=== PATIENT | female | born 1955 | race Caucasian/White ===

== ENCOUNTER 2017-04-27 14:22 | Outpatient (CLI) | payer OTHER | END 2017-04-27 14:23 | disposition home or self-care (01) | LOC: BICRAD 14:22 | PROVIDERS: ATTEND Nurse Practitioner Family | DX: R05 Cough (principal) | CPT/HCPCS: 71020 ==

== ENCOUNTER 2019-02-26 13:27 | Outpatient (CLI) | payer OTHER ==
--- NOTE | 2019-03-07 12:55 | MMO ---
Bilateral MAMMO Bilat Screen [facility]. CLINICAL HISTORY: Patient is 64 years old and is seen for screening. The patient has no family history of breast cancer. The patient has no personal history of cancer. VIEWS: The views performed were: bilateral craniocaudal with tomosynthesis; bilateral mediolateral oblique with tomosynthesis; and right exaggerated craniocaudal. FILMS COMPARED: The present examination has been compared to prior imaging studies performed at [facility] on 11/05/2015, 11/09/2015 and 11/29/2016, and at [facility] on 08/29/2017. This study has been interpreted with the assistance of computer-aided detection. MAMMOGRAM FINDINGS: The breasts are heterogeneously dense, which could obscure a lesion on mammography. There are benign appearing calcifications seen in the left breast. There are no suspicious masses, calcifications or areas of architectural distortion. There are no suspicious masses, suspicious calcifications, or new areas of architectural distortion. IMPRESSION: THERE IS NO MAMMOGRAPHIC EVIDENCE OF MALIGNANCY. A ROUTINE FOLLOW-UP MAMMOGRAM IN 1 YEAR IS RECOMMENDED. THE RESULTS OF THIS EXAM WERE SENT TO THE PATIENT. ACR BI-RADS Category 2 - Benign finding MAMMOGRAPHY NOTE: 1. A negative mammogram report should not delay a biopsy if a dominant of clinically suspicious mass is present. 2. Approximately 10% to 15% of breast cancers are not detected by mammography. 3. Adenosis and dense breasts may obscure an underlying neoplasm. Reported by: COCO TERRY MD Electonically Signed: [id number]
== END 2019-02-26 13:28 | disposition home or self-care (01) ==
LOC: BICMAMMO 13:27
PROVIDERS: ATTEND Specialist
DX: Z12.31 Encounter for screening mammogram for malignant neoplasm of breast (principal)
CPT/HCPCS: 77063; 77067

== ENCOUNTER 2019-04-30 07:45 | Outpatient (CLI) | payer MEDICARE ==
--- NOTE | 2019-04-30 14:05 | MRI ---
MRI LUMBAR SPINE WITHOUT CONTRAST: HISTORY: The patient states she is having chronic back pain. History of falls. FINDINGS: The lumbar vertebral bodies are normal in height. There are some mild compression changes of the supe rior endplate of T12. There is some minimal bony retropulsion of the posterior-superior margin of denise t vertebral body by 4 to 5 mm. These changes appear chronic in nature. Disk spaces are all well prese rved. There is no significant periaortic or mesenteric adenopathy. The visualized portions of the kidneys appear unremarkable. T12-L1: Unremarkable. L1-L2: Unremarkable. L2-L3: Unremarkable. L3-L4: Some mild facet hypertrophic changes. No canal or foraminal stenosis. L4-L5: Degenerative facet changes at this level without canal or foraminal narrowing. L5-S1: No significant canal or foraminal stenosis. Mild degenerative facet changes. IMPRESSION: Minimal compression changes involving the superior endplate of T12 with 4 to 5 mm of bony retropulsio n without any significant canal stenosis. Compression is approximately 20%. POS: [facility]
--- NOTE | 2019-04-30 14:13 | MRI ---
MRI THORAACIC SPINE PERFORMED WITHOUT CONTRAST ENHANCEMENT: Date: 04/30/19 HISTORY: Back pain. FINDINGS: There is severe scoliotic change to the spine, convex to the right. Vertebral bodies all maintain nor mal height, with the exception of an old appearing compression injury involving the superior end plat e of T12. There is approximately 4-5 mm of bony retropulsion associated with this without significant canal narrowing. Degree of compression is in the 20% range. No abnormal marrow signal change is note d. There is no significant canal or foraminal stenosis appreciated. IMPRESSION: Old-appearing compression injury of T12 with 4-5 mm of bony retropulsion of the posterior superior ma rgin at T12 without canal stenosis. POS: [facility]
--- NOTE | 2019-04-30 14:26 | MRI ---
MRI CERVICAL SPINE PERFORMED WITHOUT CONTRAST ENHANCEMENT: Date: 04/30/19 HISTORY: Chronic neck pain. FINDINGS: There is a straightening to slight reversal to the normal cervical curve. There is degenerative disc narrowing at C5-6 and C6-7. Cord signal change is normal. C2-3: Unremarkable. C3-4: Unremarkable. C4-5: Unremarkable. C5-6: There is some posterior osteophytic change at this level without significant canal or foramina l stenosis. C6-7: Again, minimal posterior osteophytic change without significant canal narrowing. There is some borderline right foraminal narrowing. There is a tiny central fluid density which is compatible with a tiny syrinx at this level. It terminates at the C7-T1 level. C7-T1: Unremarkable. 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 No signs of any significant canal or foraminal mercedes nosis at any of the vertebral body levels. POS: [facility]
== END 2019-04-30 07:46 | disposition home or self-care (01) ==
LOC: SCSMRI 07:45
PROVIDERS: ATTEND Neurological Surgery
DX: M54.2 Cervicalgia (principal); M54.6 Pain in thoracic spine; M54.5 Low back pain; G95.0 Syringomyelia and syringobulbia
CPT/HCPCS: 72141; 72146; 72148

== ENCOUNTER 2019-07-01 07:14 | Day surgery (SDC) | payer MEDICARE ==
[2019-06-28 14:41] VITALS: BMI 28.2
[2019-07-01 09:00] LABS: Anion Gap 11 mmol/L (10-20); BUN (Urea Nitrogen) 14 mg/dL (9.8-20.1); Calc. Creatinine Clearance 83 mL/min (70-130); Calcium 8.8 mg/dL (7.8-10.44); Carbon Dioxide 26 mmol/L (23-31); Chloride 105 mmol/L (98-107); Estimated GFR-MDRD 68; Glucose 98 mg/dL (80-115); Sodium 138 mmol/L (136-145)
[2019-07-01] MEDS ORDERED: PROPOFOL 200 MG/20 ML VIAL ONE (10:03)
[2019-07-01] MEDS ORDERED: Rocuronium Bromide 10 MG/ML (10ML VIAL) ONE (10:03)
[2019-07-01] MEDS ORDERED: EPHEDRINE 25 MG/5 ML SYRINGE ONE (10:03)
[2019-07-01] MEDS ORDERED: Ondansetron PF 4 MG/2 ML Vial ONE (10:03)
[2019-07-01] MEDS ORDERED: Glycopyrrolate 0.2 MG/ML 5 ML SYRINGE ONE (10:03)
[2019-07-01] MEDS ORDERED: diphenhydrAMINE 50 MG/ML VIAL ONE (10:03)
[2019-07-01] MEDS ORDERED: Dexamethasone 20 MG/5 ML VIAL ONE (10:03)
[2019-07-01 10:25] LABS: Hemoglobin 12.5 g/dL (12.0-16.0); Mean Corpuscular HGB CONC 33.8 g/dL (32.0-36.0); Mean Corpuscular Hemoglobin 31.3 pg (27.0-31.0); Mean Corpuscular Volume 92.7 fL (78.0-98.0); Mean Platelet Volume 6.9 fL (7.4-10.4); Platelet Count 246 thou/uL (130-400); RBC Distribution Width 11.9 % (11.5-14.5); Red Blood Cell (RBC) Count 3.99 mill/uL (4.20-5.40); White Blood Cell (WBC) Count 5.6 thou/uL (4.8-10.8)
[2019-07-01] MEDS ORDERED: Scopolamine 1.5 mg/72 hour Patch ONE (10:39)
[2019-07-01] MEDS ORDERED: Fentanyl 100 MCG/2 ML VIAL ONE ×2 (10:40→12:39)
[2019-07-01] MEDS ORDERED: Midazolam HCl 2 mg/2 ml Vial ONE (10:40)
[2019-07-01] MEDS ORDERED: hydrALAZINE 20 MG/ML VIAL ONE (12:31)
[2019-07-01] MEDS ORDERED: HYDROcodone/Acetaminophen 5/325 mg Tablet ONE (14:36)
--- NOTE | 2019-07-01 16:12 | OP ---
DATE OF PROCEDURE: 07/01/2019 ACCOUNT EXECUTIVE METALWORKING: Joanie Delarosa PA-C PROCEDURES PERFORMED: Anterior cervical diskectomy C5-C6 and C6-C7, interbody arthrodesis, intervertebral biomechanical device, local morselized autograft, demineralized bone matrix, and anterior titanium instrumentation C5 through C7. DESCRIPTION OF PROCEDURE: The patient was brought to the operating room and intubated. She was positioned supine with head in modest extension on a gel-filled donut. An incision was made in the right precervical area and dissected medial to the sternocleidomastoid muscle, identified the anterior cervical spine and the level was confirmed by x-ray. We debrided the anterior osteophytes, placed distraction across the disk spaces, and completely removed the intervertebral disks. The bony endplates were then decorticated for the purpose of arthrodesis and appropriate-sized intervertebral biomechanical PEEK device was brought into the field, filled with demineralized bone matrix and local morselized autograft, and tapped in place securely at C5-C6 and C6-C7. Next, an anterior plate was brought into the field and secured to C5, C6, and C7 using two 14 mm screws at each level. The wound was extensively irrigated. MAC hemostasis was secured. The wound was closed in anatomic layers. Job ID: [id number]
--- NOTE | 2019-07-01 16:43 | EKG ---
Test Reason : PREOP Blood Pressure : / mmHG Vent. Rate : 064 BPM Atrial Rate : 064 BPM P-R Int : 174 ms QRS Dur : 086 ms QT Int : 410 ms P-R-T Axes : 051 002 037 degrees QTc Int : 422 ms Sinus rhythm with occasional Premature ventricular complexes T wave abnormality, consider anterior ischemia Abnormal ECG Confirmed by CARLOS ZELAYA ([id number]) on 07/01/2019 4:43:29 PM Referred By: TERRI Confirmed By:CARLOS ZELAYA
== END 2019-07-01 15:00 | disposition home or self-care (01) ==
LOC: SDC 07:14
PROVIDERS: ATTEND Neurological Surgery
PROC: 0RG20A0 Fusion of 2 or more Cervical Vertebral Joints with Interbody Fusion Device, Anterior Approach, Anterior Column, Open Approach (ICD-10-PCS; principal; 2019-07-01)
PROC: 0RT30ZZ Resection of Cervical Vertebral Disc, Open Approach (ICD-10-PCS; 2019-07-01)
DX: M50.122 Cervical disc disorder at C5-C6 level with radiculopathy (principal); M47.22 Other spondylosis with radiculopathy, cervical region; M25.78 Osteophyte, vertebrae; I10 Essential (primary) hypertension; E03.9 Hypothyroidism, unspecified; Z79.2 Long term (current) use of antibiotics; Z79.899 Other long term (current) drug therapy; Z88.8 Allergy status to other drugs, medicaments and biological substances
CPT/HCPCS: 36415; 76000; 80048; 85027; 93005; 93010; C1713; C1776; J0360; J0690; J1100; J1200; J2250; J2405; J2704; J3010; J3490

== ENCOUNTER 2019-07-16 08:35 | Outpatient (CLI) | payer MEDICARE ==
--- NOTE | 2019-07-16 09:33 | RAD ---
3 VIEWS CERVICAL SPINE: Date: 07/16/2019 COMPARISON: None. HISTORY: Radiculopathy, prior cervical spine surgery. FINDINGS: The open-mouth odontoid view demonstrates a normal appearing dens and C1-2 articulation. There is ant erior diskectomy and fusion hardware at the C5-6 and C6-7 level, with no evidence for hardware failur e. There is mild soft tissue swelling involving the prevertebral soft tissues anterior to the postope rative hardware suggesting that this surgery is relatively recent. Clinical correlation is required. There is left-sided facet and uncovertebral osteophyte formation within the upper cervical spine, mos t prominent at C2-3, C3-4, and C4-5. Incompletely imaged dextroscoliosis is noted within the thoracic spine. IMPRESSION: Postoperative and degenerative change within the cervical spine as detailed above. POS: [facility]
== END 2019-07-16 08:36 | disposition home or self-care (01) ==
LOC: TBSIIMAG 08:35
PROVIDERS: ATTEND Neurological Surgery
DX: M47.22 Other spondylosis with radiculopathy, cervical region (principal); Z98.1 Arthrodesis status
CPT/HCPCS: 72040

== ENCOUNTER 2019-10-18 13:31 | Outpatient (CLI) | payer MEDICARE ==
--- NOTE | 2019-10-18 14:12 | MRI ---
MRI Cervical spine without contrast: HISTORY: Cervical radiculopathy. Limited range of motion of neck. Difficulty moving arms. History of prior nec k surgery. COMPARISON: 04/30/2019 FINDINGS: There has been interval postoperative changes with metallic susceptibility artifact seen at the C5-6 and C6-7 levels related to anterior plate and screws transfixing these levels. Tiny syringohydromyelia is again seen at the C6-7 level and unchanged. Metallic susceptibility artifact is seen in the posterior soft tissues at the level of the lower cerv ical spine which was also seen on the prior study and likely related to prior postoperative change. C1-2:Degenerative changes seen at the articulation of the odontoid with anterior arch of C1 which matthews s result in mild effacement of the ventral subarachnoid space at this level. This is unchanged from prior exam. C2-3: There is no disc bulge or disc herniation. The central spinal canal and neural foramina are pat ent. C3-4: There is no disc bulge or disc herniation. The central spinal canal and neural foramina are pat ent. Trace anterolisthesis of C3 on C4 is present and likely attributable to facet degenerative changes at this level. C4-5: Mild disc osteophyte complex without significant central canal narrowing. The neural foramina a re patent. C5-6: Central spinal canal and neural foramina are patent. C6-7: Central spinal canal and neural foramina are patent. C7-T1: Central spinal canal and neural foramina are patent. IMPRESSION: 1. Stable tiny syringohydromyelia at the C6-7 level. 2. Interval postoperative changes related to anterior cervical fusion from C5 to C7. 3. No significant central canal or neural foraminal narrowing at any level.
== END 2019-10-18 13:32 | disposition home or self-care (01) ==
LOC: TBSIIMAG 13:31
PROVIDERS: ATTEND Neurological Surgery
DX: M54.12 Radiculopathy, cervical region (principal); G95.0 Syringomyelia and syringobulbia; Z98.1 Arthrodesis status
CPT/HCPCS: 72141

== ENCOUNTER 2020-09-18 11:01 | Outpatient (CLI) | payer MEDICARE | END 2020-09-18 11:02 | disposition home or self-care (01) | LOC: BICRAD 11:01 | PROVIDERS: ATTEND Specialist | DX: M25.531 Pain in right wrist (principal); M79.641 Pain in right hand; M18.11 Unilateral primary osteoarthritis of first carpometacarpal joint, right hand ==

== ENCOUNTER 2020-10-26 13:51 | Outpatient (CLI) | payer MEDICARE | END 2020-10-26 13:52 | disposition home or self-care (01) | LOC: BICRAD 13:51 | PROVIDERS: ATTEND Specialist | DX: M54.9 Dorsalgia, unspecified (principal); G54.9 Nerve root and plexus disorder, unspecified; M47.816 Spondylosis without myelopathy or radiculopathy, lumbar region; M47.814 Spondylosis without myelopathy or radiculopathy, thoracic region; M53.3 Sacrococcygeal disorders, not elsewhere classified | CPT/HCPCS: 72072; 72100; 72202; 72220 ==

== ENCOUNTER 2020-11-10 14:12 | Outpatient (CLI) | payer MEDICARE | END 2020-11-10 14:13 | disposition home or self-care (01) | LOC: BICRAD 14:12 | PROVIDERS: ATTEND Nurse Practitioner Family | DX: R07.81 Pleurodynia (principal); M94.0 Chondrocostal junction syndrome [Tietze]; S29.9XXA Unspecified injury of thorax, initial encounter | CPT/HCPCS: 71048 ==

== ENCOUNTER 2020-11-17 15:17 | Observation (INO) | payer MEDICARE ==
[2020-11-17 18:06] VITALS: BMI 27.7
[2020-11-17] MEDS ORDERED: cloNIDine 0.1 MG TAB PO PRN (20:19)
[2020-11-17] MEDS ORDERED: cloNIDine 0.1 MG TAB PO SCH (20:30)
[2020-11-17] MEDS: Acetaminophen 325 MG TAB PO SCH (20:50)
[2020-11-17] MEDS ORDERED: Zolpidem Tartrate 5 MG TAB PO SCH (21:00)
[2020-11-17 21:42] LABS: Troponin I Less than 0.010 ng/mL (< 0.028)
[2020-11-17] MEDS ORDERED: Carvedilol 25 MG TAB PO SCH (23:45)
[2020-11-17] MEDS ORDERED: ALPRAZolam 0.5 MG TAB PO PRN (23:48)
[2020-11-17] MEDS ORDERED: Lubiprostone 8 MCG CAP PO PRN (23:49)
[2020-11-17] MEDS ORDERED: Cyclobenzaprine 10 MG TAB PO PRN (23:51)
[2020-11-18] MEDS: Acetaminophen 325 MG TAB PO SCH ×3 (00:10→08:34)
[2020-11-18] MEDS ORDERED: Levothyroxine Sodium 75 MCG TAB PO SCH ×2 (06:00)
[2020-11-18 07:29] LABS: Troponin I Less than 0.010 ng/mL (< 0.028)
[2020-11-18] MEDS ORDERED: Carvedilol 25 MG TAB PO SCH (09:00)
[2020-11-18] MEDS ORDERED: Venlafaxine HCl XR 75 MG CAP PO SCH (09:00)
[2020-11-18] MEDS ORDERED: Hydrochlorothiazide 25 MG TAB PO SCH (09:00)
[2020-11-18] MEDS ORDERED: CeleCOXIB 100 MG CAP PO SCH (09:00)
[2020-11-18] MEDS ORDERED: Rosuvastatin 20 MG TAB PO SCH (09:00)
[2020-11-18] MEDS ORDERED: Venlafaxine HCl XR 150 MG CAP PO SCH (09:00)
[2020-11-18] MEDS ORDERED: Losartan 25 MG TAB PO SCH (09:00)
[2020-11-18 09:27] VITALS: BP 140/64; TEMP 97.9
[2020-11-18] MEDS ORDERED: tiZANidine HCl 4 MG TAB PO SCH ×2 (21:00→23:45)
== END 2020-11-18 11:23 | disposition home or self-care (01) ==
LOC: 2SW 15:17
PROVIDERS: ADMIT Specialist; ATTEND Specialist
DX: R77.8 Other specified abnormalities of plasma proteins (principal); M94.0 Chondrocostal junction syndrome [Tietze]; M79.7 Fibromyalgia; I10 Essential (primary) hypertension; K58.9 Irritable bowel syndrome, unspecified; G43.909 Migraine, unspecified, not intractable, without status migrainosus; K21.9 Gastro-esophageal reflux disease without esophagitis; E78.5 Hyperlipidemia, unspecified; M81.0 Age-related osteoporosis without current pathological fracture; Z79.899 Other long term (current) drug therapy; Z88.1 Allergy status to other antibiotic agents; Z88.2 Allergy status to sulfonamides; Z88.8 Allergy status to other drugs, medicaments and biological substances
CPT/HCPCS: 36415; 84484; G0378

== ENCOUNTER 2021-04-24 22:46 | Observation (INO) | payer MEDICARE ==
[2021-04-24 23:35] LABS: #Eosinphils 0.2 thou/uL (0.0-0.7); #Lymphocytes 2.7 thou/uL (1.20-3.40); #Monocytes 0.6 thou/uL (0.11-0.59); #Neutrophils 4.3 thou/uL (1.40-6.50); %Basophils 0.5 % (0.0-1.0); %Lymphocytes 34.2 % (21.0-51.0); %Monocytes 8.3 % (0.0-10.0); %Neutrophils 55.1 % (42.0-75.0); Hemoglobin 13.3 g/dL (12.0-16.0); Mean Corpuscular HGB CONC 32.5 g/dL (32.0-36.0); Mean Corpuscular Hemoglobin 30.3 pg (27.0-31.0); Mean Corpuscular Volume 93.3 fL (78.0-98.0); Mean Platelet Volume 7.6 fL (7.4-10.4); Platelet Count 267 thou/uL (130-400); RBC Distribution Width 12.1 % (11.5-14.5); White Blood Cell (WBC) Count 7.8 thou/uL (4.8-10.8)
[2021-04-24] MEDS ORDERED: Nitroglycerin 2% Ointment 1 INCH/1 GM Packet ONE (23:46)
[2021-04-24] MEDS ORDERED: Acetaminophen 500 MG TAB ONE (23:48)
[2021-04-25] LABS: ALT (SGPT) 20 U/L (8-55); AST (SGOT) 48 U/L (5-34); Albumin 4.4 g/dL (3.4-4.8); Alkaline Phosphatase 127 U/L (40-110); Anion Gap 13 mmol/L (10-20); BUN (Urea Nitrogen) 10 mg/dL (9.8-20.1); Bilirubin, Total 0.2 mg/dL (0.2-1.2); Calc. Creatinine Clearance 0 mL/min (70-130); Calcium 9.5 mg/dL (7.8-10.44); Carbon Dioxide 29 mmol/L (23-31); Chloride 101 mmol/L (98-107); Globulin 3.3 g/dL (2.4-3.5); Glucose 102 mg/dL (80-115); Potassium 3.9 mmol/L (3.5-5.1); Protein, Total 7.7 g/dL (5.8-8.1); Sodium 139 mmol/L (136-145)
[2021-04-25] MEDS ORDERED: Enoxaparin Sodium 80 MG/0.8 ML SYRINGE ONE (01:31)
[2021-04-25 02:33] LABS: Troponin I Less than 0.010 ng/mL (< 0.028)
[2021-04-25 03:35] VITALS: BMI 28.3
[2021-04-25 05:13] LABS: Troponin I Less than 0.010 ng/mL (< 0.028)
[2021-04-25 16:32] VITALS: BP 128/60; TEMP 98.4
[2021-04-25 16:42] LABS: SARS-CoV-2 PCR by NAA Not Detected (NotDetected)
== END 2021-04-25 16:32 | disposition home or self-care (01) ==
LOC: ERS 22:46 → 2SW 04-25 01:03
PROVIDERS: ADMIT Specialist; ATTEND Specialist
DX: I16.9 Hypertensive crisis, unspecified (principal); R00.2 Palpitations; I10 Essential (primary) hypertension; E78.5 Hyperlipidemia, unspecified; E11.9 Type 2 diabetes mellitus without complications; I48.91 Unspecified atrial fibrillation; Z79.899 Other long term (current) drug therapy; Z88.2 Allergy status to sulfonamides; Z91.040 Latex allergy status; Z20.822 Contact with and (suspected) exposure to COVID-19
CPT/HCPCS: 80053; 82962; 83880; 84484 ×3; 85025; 93005; 93306; G0378 ×2; U0003; U0005; 36415; 36416; 96372; J1650

== ENCOUNTER 2021-06-22 11:57 | Outpatient (CLI) | payer MEDICARE | END 2021-06-22 11:58 | disposition home or self-care (01) | LOC: BICRAD 11:57 | PROVIDERS: ATTEND Specialist | DX: R10.9 Unspecified abdominal pain (principal); R06.00 Dyspnea, unspecified; K59.00 Constipation, unspecified | CPT/HCPCS: 71046; 74019 ==

== ENCOUNTER 2021-12-13 12:27 | Outpatient (CLI) | payer MEDICARE ==
[~2021-12-13 12:27] MED LIST: Iopamidol-370 76% 500 ML 1 ML ONE
== END 2021-12-13 12:28 | disposition home or self-care (01) ==
LOC: BICCT 12:27
PROVIDERS: ATTEND Otolaryngology Otolaryngic Allergy
DX: H93.A3 Pulsatile tinnitus, bilateral (principal)
CPT/HCPCS: 70496; 70498; 82565; Q9967

== ENCOUNTER 2022-03-02 16:06 | Emergency (ER) | payer MEDICARE | END 2022-03-02 17:42 | disposition home or self-care (01) | LOC: ERS 16:06 | DX: T18.198A Other foreign object in esophagus causing other injury, initial encounter (principal); I10 Essential (primary) hypertension; E11.9 Type 2 diabetes mellitus without complications | CPT/HCPCS: 70360 ==

== ENCOUNTER 2022-05-25 12:54 | Outpatient (CLI) | payer MEDICARE | END 2022-05-25 12:55 | disposition home or self-care (01) | LOC: BICRAD 12:54 | PROVIDERS: ATTEND Internal Medicine Gastroenterology | DX: R10.13 Epigastric pain (principal); K21.9 Gastro-esophageal reflux disease without esophagitis; K59.00 Constipation, unspecified; M54.9 Dorsalgia, unspecified; G89.29 Other chronic pain | CPT/HCPCS: 74019 ==

== ENCOUNTER 2023-05-29 06:09 | Day surgery (SDC) | payer MEDICARE ==
[2023-05-26 14:29] VITALS: BMI 25.2
[2023-05-29] MEDS ORDERED: Famotidine/PF 20 mg/2ml Vial ONE (06:41)
[2023-05-29] MEDS ORDERED: EPINEPHrine 1 MG/ML VIAL ONE (06:46)
[2023-05-29] MEDS ORDERED: Gentamicin 80 MG/2 ML VIAL ONE (06:46)
[2023-05-29] MEDS ORDERED: Vancomycin 1 GM VIAL ONE (06:46)
[2023-05-29] MEDS ORDERED: Lidocaine 1% (PF) 30 ML VIAL ONE (06:46)
[2023-05-29] MEDS ORDERED: Bupivacaine 0.25% HCL 30 ML VIAL ONE (06:46)
[2023-05-29] MEDS ORDERED: CEFAZOLIN 2 GM VIAL ONE (07:11)
[2023-05-29] MEDS ORDERED: Sodium Chloride 0.9% 100 ML ONE (07:11)
[2023-05-29] MEDS ORDERED: Enoxaparin 40 MG (0.4 mL) SYRINGE ONE (07:13)
[2023-05-29] MEDS ORDERED: Lidocaine 2% PF 5 ML VIAL ONE (07:15)
[2023-05-29] MEDS ORDERED: PROPOFOL 20 ML ONE ×3 (07:15→09:10)
[2023-05-29] MEDS ORDERED: fentaNYL 50 mcg/mL 1 mL Vial ONE (07:15)
[2023-05-29] MEDS ORDERED: Metoclopramide HCl 10 MG (2 mL) VIAL ONE (07:16)
[2023-05-29] MEDS ORDERED: Dexamethasone 4 mg/ml Vial ONE (07:16)
[2023-05-29] MEDS ORDERED: Rocuronium Bromide 10 MG/ML (10ML VIAL) ONE (07:16)
[2023-05-29] MEDS ORDERED: Ondansetron PF 4 MG/2 ML Vial ONE (07:16)
[2023-05-29] MEDS ORDERED: PHENYLEPHRINE-NS 100 MCG/ML 10 ML SYRINGE ONE (07:51)
[2023-05-29] MEDS ORDERED: ePHEDrine Sulfate 50 MG/10 ML VIAL ONE (08:18)
[2023-05-29] MEDS ORDERED: Tranexamic Acid 1,000 MG/10 ML VIAL ONE ×2 (08:24→08:29)
[2023-05-29] MEDS ORDERED: SUGAMMADEX SODIUM 200 MG/2 ML VIAL ONE (10:06)
== END 2023-05-29 12:42 | disposition home or self-care (01) ==
LOC: SDC 06:09
PROVIDERS: ATTEND Plastic Surgery
PROC: 0H0V0ZZ Alteration of Bilateral Breast, Open Approach (ICD-10-PCS; principal; 2023-05-29)
DX: N60.21 Fibroadenosis of right breast (principal); N60.22 Fibroadenosis of left breast; N62 Hypertrophy of breast; I10 Essential (primary) hypertension; E11.9 Type 2 diabetes mellitus without complications; M19.90 Unspecified osteoarthritis, unspecified site; E66.9 Obesity, unspecified; Z90.710 Acquired absence of both cervix and uterus; Z98.890 Other specified postprocedural states; Z91.040 Latex allergy status; Z68.25 Body mass index [BMI] 25.0-25.9, adult; Z90.49 Acquired absence of other specified parts of digestive tract
CPT/HCPCS: 19318; 93005; J0171; J3010; 88305; 93010; J0665; J1100; J1580; J1650; J1790; J2001; J2405; J2704; J2765; J3370; J3490; S0028

== ENCOUNTER 2023-10-05 07:40 | Outpatient (CLI) | payer MEDICARE | END 2023-10-05 07:41 | disposition home or self-care (01) | LOC: BICCT 07:40 | PROVIDERS: ATTEND Nurse Practitioner Family | DX: M47.22 Other spondylosis with radiculopathy, cervical region (principal); R10.13 Epigastric pain; R10.32 Left lower quadrant pain; Z98.890 Other specified postprocedural states | CPT/HCPCS: 72141; 74177 ==

== ENCOUNTER 2024-06-14 10:07 | Outpatient (CLI) | payer MEDICARE | END 2024-06-14 10:08 | disposition home or self-care (01) | LOC: BICRAD 10:07 | PROVIDERS: ATTEND Internal Medicine Gastroenterology | DX: E11.9 Type 2 diabetes mellitus without complications (principal); K21.9 Gastro-esophageal reflux disease without esophagitis; K59.00 Constipation, unspecified; R10.9 Unspecified abdominal pain; F43.21 Adjustment disorder with depressed mood | CPT/HCPCS: 74019 ==